=== PATIENT | male | born 1965 | race Caucasian/White ===

== ENCOUNTER → 2018-11-03 | Outpatient (CLI) | payer OTHER ==
[~2018-11-03] MED LIST: ATOR1TAB21 PO; LOSA50TA88 PO; METF500T4 PO; PROHANCE 279.3MG/ML 15ML VIAL (A9576) As Ordered ONE
--- NOTE | 2018-11-04 09:02 | REP ---
MRI abdomen and liver without and with IV gadolinium: History: Abnormal findings on imaging. Comparison is made with CT study abdomen and pelvis August 01, 2018. A prior MRI study of the abdomen is available from June 06, 2011. A prior CT study is available from June 04, 2011. Technique: Axial and coronal imaging planes are utilized. T1 and T2-weighted sequences include spin-echo, fast spin echo, in and out of phase, gradient echo, diffusion weighted sequences, and post contrast T1-weighted fat sat images. The patient could not tolerate continuing with the exam during this dynamically acquired post contrast portion of the study and only arterial phase and 1-minute post contrast images could be obtained. Gadolinium enhancement dose is 14 mL of intravenous ProHance. MRI findings: There are cortical cysts bilaterally in the kidneys. The largest of these is in the lower pole on the right as seen on CT measuring up to 2.6 cm in greatest transverse dimension. No abnormality is noted in the gallbladder, pancreas, or spleen. There is no evidence of ascites. No evidence of upper abdominal adenopathy is seen. Spleen is not enlarged measuring 11.1 cm in greatest dimension. The liver is abnormal diffusely with a somewhat mottled course signal intensity most pronounced on T2-weighted fat sat sequence. Postcontrast images demonstrate a pattern of numerous regenerative nodules. The left hepatic lobe is prominent and the right hepatic lobe is somewhat small. There is fatty infiltration of the liver and the findings suggest early cirrhosis. A recannulated umbilical vein is apparent entering the portal circulation. No other abdominal venous collaterals are observed. The recent CT study shows a hyperdense or hypervascular lesion in the right lobe of the liver inferiorly and medially. This measures 2.9 cm in greatest diameter. This corresponds to a the lesion evaluated by the [address] and MRI studies. At that time this lesion measured 1.1 cm. It is isointense on routine T2-weighted sequences on today's MRI and is only seen on a few of the precontrast sequences namely in and out of phase and gradient echo sequences. There is no evidence of restricted diffusion in the lesion. On the arterial phase postcontrast sequence there is hypervascular enhancement. There is a low signal intensity capsule around the periphery and there are areas of nonenhancement centrally. The 1 minute post contrast sequence shows washout. As stated above the patient could not tolerate the more delayed postcontrast sequences. By MRI study the lesion measures 2.4 cm in greatest diameter. Impression: 1. MR features in the liver suggestive of cirrhosis. Fatty infiltration. Hypertrophy of the left lobe. Regenerative micronodular pattern and coarse texture in the liver. Recannulated umbilical vein. 2. Gradually enlarging 2.4 cm hypervascular lesion in the inferior aspect of the right lobe of the liver. This grew from 1.1 cm in 2011 to 2.4 cm currently by MRI. The lesion demonstrates washout. Differential possibilities include focal nodular hyperplasia, adenoma, and low grade hepatocellular carcinoma. Electronically Signed by Adis Friedman MD 11/04/2018 10:14 A
== END ==
LOC: M RAD 14:16
PROVIDERS: ATTEND Internal Medicine Gastroenterology
DX: R93.3 Abnormal findings on diagnostic imaging of other parts of digestive tract (principal); N28.1 Cyst of kidney, acquired; K76.0 Fatty (change of) liver, not elsewhere classified; K76.89 Other specified diseases of liver
CPT/HCPCS: 74183; A9576

== ENCOUNTER 2018-12-03 09:51 | Day surgery (SDC) | payer OTHER ==
[~2018-12-03] VITALS: Ht 170.2 cm; Wt 79.4 kg
[~2018-12-03 09:51] MED LIST changes: +NS 1,000 ML IV ONE; -PROHANCE 279.3MG/ML 15ML VIAL (A9576) As Ordered ONE
[2018-12-03] MEDS ORDERED: PROPOFOL 200 MG/20 ML VIAL As Ordered ONE ×2 (12:23→12:33)
[2018-12-03] MEDS ORDERED: LIDOCAINE 2% INJ 100 MG/5 ML SDV (FOR ANES.) As Ordered ONE (12:23)
--- NOTE | 2018-12-03 12:56 | ROOR ---
Patient Name: Jonathon Jeffrey Procedure Date: 12/03/2018 12:22 PM Date of : 1965 Age: 53 Room: [facility] Gender: Male Note Status: Finalized Procedure: Upper GI endoscopy Indications: Cirrhosis rule out esophageal varices Providers: Torey Ryan MD Referring MD: ESAU WHITE MD Requesting Provider: Medicines: Monitored Anesthesia Care Complications: No immediate complications. Procedure: Pre-Anesthesia Assessment: - Prior to the procedure, a History and Physical was performed, and patient medications and allergies were reviewed. The patient is competent. The risks and benefits of the procedure and the sedation options and risks were discussed with the patient. All questions were answered and informed consent was obtained. Patient identification and proposed procedure were verified by the physician, the nurse and the anesthesiologist in the procedure room. Airway Examination: normal oropharyngeal airway and neck mobility. Respiratory Examination: clear to auscultation. CV Examination: normal. Prophylactic Antibiotics: The patient does not require prophylactic antibiotics. Prior Anticoagulants: The patient has taken no previous anticoagulant or antiplatelet agents. ASA Grade Assessment: III - A patient with severe systemic disease. After reviewing the risks and benefits, the patient was deemed in satisfactory condition to undergo the procedure. The anesthesia plan was to use monitored anesthesia care (MAC). Immediately prior to administration of medications, the patient was re-assessed for adequacy to receive sedatives. The heart rate, respiratory rate, oxygen saturations, blood pressure, adequacy of pulmonary ventilation, and response to care were monitored throughout the procedure. The physical status of the patient was re-assessed after the procedure. The Endoscope was introduced through the mouth, and advanced to the second part of duodenum. The upper GI endoscopy was accomplished without difficulty. The patient tolerated the procedure well. Findings: Three columns of non-bleeding grade II, small (< 5 mm) varices were found in the middle third of the esophagus and in the lower third of the esophagus,. No stigmata of recent bleeding were evident and no red radha signs were present. The Z-line was regular and was found in the distal esophagus. Diffuse severe inflammation characterized by erosions, erythema, friability and granularity was found in the gastric antrum. Biopsies were taken with a cold forceps for Helicobacter pylori testing. Verification of patient identification for the specimen was done by the physician and nurse using the patient's name, date and medical record number. Estimated blood loss was minimal. No gross lesions were noted in the duodenal bulb and in the second portion of the duodenum. Impression: - Non-bleeding grade II and small (< 5 mm) esophageal varices. - Z-line regular, in the distal esophagus. - Gastritis. Biopsied. - No gross lesions in the duodenal bulb and in the second portion of the duodenum. Recommendation: - Patient has a contact number available for emergencies. The signs and symptoms of potential delayed complications were discussed with the patient. Return to normal activities tomorrow. Written discharge instructions were provided to the patient. - Low sodium diet. - Continue present medications. - Await pathology results. - Give a beta irais with dosage titrated by the heart rate. - Return to GI clinic 1 - 2 weeks. Please call GI clinic @ [phone] for apppointment date and time. - Return to primary care physician. Torey Ryan MD Torey Ryan MD 12/03/2018 12:56:28 PM Electronically signed by Torey Ryan MD Number of Addenda: 0 Note Initiated On: 12/03/2018 12:22 PM Estimated Blood Loss: Estimated blood loss was minimal.
--- NOTE | 2018-12-03 13:15 | ROOR ---
Patient Name: Jonathon Jeffrey Procedure Date: 12/03/2018 12:23 PM Date of : 1965 Age: 53 Room: [facility] Gender: Male Note Status: Finalized Procedure: Colonoscopy Indications: Screening for colorectal malignant neoplasm Providers: Torey Ryan MD Referring MD: ESAU WHITE MD Requesting Provider: Medicines: Monitored Anesthesia Care Complications: No immediate complications. Procedure: Pre-Anesthesia Assessment: - Prior to the procedure, a History and Physical was performed, and patient medications and allergies were reviewed. The patient is competent. The risks and benefits of the procedure and the sedation options and risks were discussed with the patient. All questions were answered and informed consent was obtained. Patient identification and proposed procedure were verified by the physician, the nurse and the anesthesiologist in the procedure room. Mental Status Examination: normal. Airway Examination: normal oropharyngeal airway and neck mobility. Respiratory Examination: clear to auscultation. CV Examination: normal. Prophylactic Antibiotics: The patient does not require prophylactic antibiotics. Prior Anticoagulants: The patient has taken no previous anticoagulant or antiplatelet agents. ASA Grade Assessment: III - A patient with severe systemic disease. After reviewing the risks and benefits, the patient was deemed in satisfactory condition to undergo the procedure. The anesthesia plan was to use monitored anesthesia care (MAC). Immediately prior to administration of medications, the patient was re-assessed for adequacy to receive sedatives. The heart rate, respiratory rate, oxygen saturations, blood pressure, adequacy of pulmonary ventilation, and response to care were monitored throughout the procedure. The physical status of the patient was re-assessed after the procedure. The Colonoscope was introduced through the anus and advanced to the terminal ileum, with identification of the appendiceal orifice and IC valve. The colonoscopy was performed without difficulty. The patient tolerated the procedure well. The quality of the bowel preparation was good. The terminal ileum, ileocecal valve, appendiceal orifice, and rectum were photographed. Scope insertion time was 3 minutes. Scope withdrawal time was 10 minutes. The total duration of the procedure was 14 minutes. Findings: The perianal and digital rectal examinations were normal. The terminal ileum appeared normal. Multiple small and large-mouthed diverticula were found from sigmoid to descending colon. There was no evidence of diverticular bleeding. Two medium-sized angioectasias without bleeding were found in the descending colon. 10 mm, non-bleeding rectal varices were found. Non-bleeding external and internal hemorrhoids were found during retroflexion. The hemorrhoids were small. Impression: - The examined portion of the ileum was normal. - Moderate diverticulosis from sigmoid to descending colon. There was no evidence of diverticular bleeding. - Two non-bleeding colonic angioectasias. - Rectal varices. - Non-bleeding external and internal hemorrhoids. - No specimens collected. Recommendation: - Patient has a contact number available for emergencies. The signs and symptoms of potential delayed complications were discussed with the patient. Return to normal activities tomorrow. Written discharge instructions were provided to the patient. - Low sodium diet. - Continue present medications. - Repeat colonoscopy in 10 years for screening purposes. - Return to GI clinic 1 - 2 weeks. Please call GI clinic @ [phone] for apppointment date and time. - Return to primary care physician. Torey Ryan MD Torey Ryan MD 12/03/2018 1:15:22 PM Electronically signed by Torey Ryan MD Number of Addenda: 0 Note Initiated On: 12/03/2018 12:23 PM Estimated Blood Loss: Estimated blood loss: none.
[2018-12-03 13:25] VITALS: BP 123/75
== END 2018-12-03 13:40 | disposition home or self-care (01) ==
LOC: M OPP 09:51
PROVIDERS: ATTEND Internal Medicine Gastroenterology
DX: Z12.11 Encounter for screening for malignant neoplasm of colon (principal); K57.30 Diverticulosis of large intestine without perforation or abscess without bleeding; K55.20 Angiodysplasia of colon without hemorrhage; K62.89 Other specified diseases of anus and rectum; K64.9 Unspecified hemorrhoids; K74.60 Unspecified cirrhosis of liver; I85.10 Secondary esophageal varices without bleeding; K29.70 Gastritis, unspecified, without bleeding

== ENCOUNTER 2021-02-17 12:05 | Inpatient (IN) | payer OTHER ==
[~2021-02-17] VITALS: Ht 170.2 cm; Wt 87.4 kg
[2021-02-17] VITALS (13 sets, daily range): BP systolic 116–143; BP diastolic 58–79
[~2021-02-17 12:05] MED LIST changes: +METF-838 PO; -METF500T4 PO; -NS 1,000 ML IV ONE
[2021-02-17] MEDS ORDERED: ACETAMINOPHEN TAB 650MG DOSE (2X325MG) PO PRN (14:25)
[2021-02-17 15:02] LABS: MEAN CORPUSCULAR HEMOGLOBIN 20.2 pg (27.0-33.0); MEAN CORPUSCULAR HGB CONC 27.3 g/dl (32.0-36.5); MEAN CORPUSCULAR VOLUME 73.9 fl (80.0-96.0); PLATELET COUNT, AUTOMATED 201 10^3/uL (150-450); RED BLOOD COUNT 2.18 10^6/uL (4.30-6.10); WHITE BLOOD COUNT 5.8 10^3/uL (4.0-10.0)
[2021-02-17 15:15] LABS: HEMATOCRIT 16.1 % (42.0-52.0); HEMOGLOBIN 4.4 g/dl (13.5-17.5)
[2021-02-17 15:33] LABS: ALBUMIN 3.1 GM/DL (3.2-5.2); ALT/SGPT 39 U/L (12-78); BILIRUBIN,TOTAL 0.7 MG/DL (0.2-1.0); BLOOD UREA NITROGEN 9 MG/DL (7-18); CALCIUM LEVEL 7.8 MG/DL (8.5-10.1); CARBON DIOXIDE LEVEL 23 MEQ/L (21-32); CHLORIDE LEVEL 110 MEQ/L (98-107); CREATININE FOR GFR 1.04 MG/DL (0.70-1.30); GLOMERULAR FILTRATION RATE > 60.0 (>56); GLUCOSE, FASTING 145 MG/DL (70-100); POTASSIUM SERUM 4.3 MEQ/L (3.5-5.1); SODIUM LEVEL 138 MEQ/L (136-145); TOTAL PROTEIN 6.4 GM/DL (6.4-8.2)
[2021-02-17] MEDS ORDERED: DEXTROSE 50% 50 ML SYRINGE IV PRN (15:45)
[2021-02-17] MEDS ORDERED: GLUCAGON INJ 1MG VIAL SC PRN (15:45)
[2021-02-17] MEDS ORDERED: GLUCOSE 4GM CHEW TABLET PO PRN (15:45)
[2021-02-17] MEDS ORDERED: LORazepam 2 MG TAB PO PRN (16:05)
--- NOTE | 2021-02-17 16:07 | HPEPDOC ---
[facility] Medical History & Physical Date of Admission Feb 17, 2021 Date of Service: Feb 17, 2021 Other Provider PCP: DAVEY Epperson in [place], [place] Attending Physician: FLOR BENTON DO History and Physical CHIEF COMPLAINT: Lightheadedness and fatigue HISTORY OF PRESENT ILLNESS: Patient reports that he has been feeling weak and fatigued for at least the past 3 weeks, and is most prominent complaint is feeling lightheaded when rising from a standing position. He is accompanied in the room by 2 family members, and they both confirm that he does look pale at this time. He presented to the [facility] emergency department for evaluation and was found to have a hemoglobin of 3.8. They do not have anyone available to do EGD/colonoscopy, therefore he was transferred to our facility as our surgical team is able to perform this. We do not currently have GI though. Blood transfusion was started in their facility and did continue to receive blood in the ambulance on his way here, he does not believe that he even finish one entire bag though. His hemoglobin upon arrival to our facility was found to be 4.4. His most recent colonoscopy was performed in November 2018 at [facility], and he was found to have 2 medium-sized nonbleeding angiectasia as in the descending colon, nonbleeding rectal varices, nonbleeding external and internal hemorrhoids, and multiple small and large mouth diverticula in the sigmoid to the descending colon. Apparently no specimens were collected, there is no mention of polyps. His most recent EGD was performed in November 2018 at the same time. At that time he was found to have 3 columns of nonbleeding grade 2 small (less than 5 mm) varices were found in the middle third of the esophagus and in the lower third of the esophagus. He also had diffuse severe inflammation characterized by erosions, erythema, friability, granularity was found in the gastric antrum. The patient and his family members are unaware of any diagnosis of cirrhosis, and he is not on any medications that would imply that he has cirrhosis either. Nevertheless, he is quite a heavy drinker and admits to drinking approximately 3-20 beers daily. CODE STATUS: Full code PAST MEDICAL HISTORY: Mixed hyperlipidemia Essential hypertension Diabetes mellitus type 2 without complication, apparently well controlled on metformin alone PAST SURGICAL HISTORY: Only colonoscopy and EGD as listed above SOCIAL HISTORY: Patient reports drinking anywhere from 3-20 beers daily. Does not smoke or use illicit drugs. FAMILY HISTORY: Mother has diabetes mellitus type 2, and had breast cancer, and an uncle had a heart attack. REVIEW OF SYSTEMS: Constitutional: Patient denies fevers, chills, night sweats, recent weight gain/loss. HEENT: Patient denies blurred or double vision, transient visual disturbances, postnasal drip, epistaxis, sore throat, difficulty chewing or swallowing food. Cardiovascular: Patient denies chest discomfort/pain, palpitations, exertional dyspnea, orthopnea, edema of the extremities, claudication. Respiratory: Patient denies dyspnea, wheezing, cough, hemoptysis, sputum production. Gastrointestinal: Patient denies nausea, vomiting, diarrhea, constipation, abdominal pain, melena, hematochezia, hematemesis. His family members state that he appears quite pale as compared to his usual self, they think he looks a little yellow, but he certainly does not have any scleral icterus, therefore I do not think that he is jaundiced. PHYSICAL EXAMINATION: General: Awake, alert, oriented 3. He is in no acute distress. HEENT: Head normocephalic atraumatic, conjunctiva are pink, sclera are n onicteric, buccal mucosa is pink and moist with no lesions in the oropharynx. Hearing is grossly intact to conversation. Respiratory: Clear to auscultation bilaterally with no wheezes, rales, or rhonchi. Cardiovascular: Regular rate and rhythm, with no rubs, gallops, or murmur. Abdomen: Soft, nontender, nondistended, no hepatosplenomegaly appreciated. Bowel sounds present. Extremities: 2+ pulses in the radial and dorsalis pedis bilaterally. No evidence of clubbing or cyanosis. ELECTROCARDIOGRAM: Taken at [facility]. Shows sinus tachycardia with a rate of 112, otherwise no acute findings. IMAGING: Apparently a chest x-ray was taken at [facility] and was unremarkable ASSESSMENT: Severe symptomatic anemia (microcytic) Tachycardia Heavy alcohol use Questionable history of cirrhosis History of small esophageal varices History of gastritis History of diverticulosis History of colonic angiectasia History of rectal varices History of internal and external hemorrhoids Diabetes mellitus type 2 PLAN: - Will admit the patient to PCU. - 4 units of blood ordered, it is expected that with the administration of blood and his tachycardia will improve. - Both the patient and [facility] were apparently unaware of the presence of esophageal varices back in 2019. The patient certainly has many areas from what she could be bleeding, however given the fact that he has been ill for the past 3 weeks and his doing remarkably well for having a hemoglobin of 3.8, clearly this must be a very slow bleed. We will start him on Carafate and Protonix. Clear liquid diet for now. Surgery has been consulted, their input is greatly appreciated, will determine need for EGD and/or colonoscopy depending on how the patient does. - Workup regarding anemia includes reticulocyte count, iron studies, TSH - Will order a liver ultrasound to determine if he has cirrhosis - He is not showing any signs of withdrawal at this time, but will put an order for CIWA protocol given heavy alcohol use. Also will give thiamine, folic acid, multivitamin -Insulin sliding scale before meals and at bedtime for diabetes mellitus type 2 - DVT prophylaxis with teds and sequentials Laboratory Data Labs 24H Laboratory Tests 2 02/17/21 14:53: Nucleated Red Blood Cells % (auto) 0.7H, Anion Gap 5L, Glomerular Filtration Rate > 60.0, Calcium Level 7.8L, Total Bilirubin 0.7, Aspartate Amino Transf (AST/SGOT) 22, Alanine Aminotransferase (ALT/SGPT) 39, Alkaline Phosphatase 51, Total Protein 6.4, Albumin 3.1L, Albumin/Globulin Ratio 0.9 02/17/21 15:57: CBC/BMP Laboratory Tests 02/17/21 14:53 Home Medications Scheduled Atorvastatin Calcium (Atorvastatin Calcium) 20 Mg Tab, 1 TAB PO DAILY Losartan Potassium (Losartan Potassium) 50 Mg Tab, 1 TAB PO DAILY Metformin HCl (Metformin HCl ER) 500 Mg Tab, 1 TAB PO DAILY Allergies Coded Allergies: No Known Allergies (Unverified , 12/01/18) A-FIB/CHADSVASC A-FIB History Current/History of A-Fib/PAF?: No FLOR BENTON DO Feb 17, 2021 16:07
[2021-02-17] MEDS: HumaLOG INSULIN (NovoLOG) PER UNIT SC SCH ×2 (16:49→21:00)
[2021-02-17] MEDS ORDERED: METF500T13 PO (16:50)
[2021-02-17 16:53] LABS: PERCENT SATURATION 2.9 % (19.7-50.0); THYROID STIMULATING HORMONE 1.88 uIU/ML (0.358-3.740)
--- NOTE | 2021-02-17 16:53 | REP ---
INDICATION: Alcoholic with anemia, determine cirrhosis. COMPARISON: Comparison is made with MRI findings from November 03, [address] findings from August 01, 2018.. TECHNIQUE: Right upper quadrant sonography. FINDINGS: Scanning through the right upper quadrant the abdomen is somewhat limited due to the limited scan windows and bowel gas. Normal sized and walled gallbladder is seen without evidence of stone. Common bile duct is normal measuring 0.5 cm in greatest diameter. Gallbladder wall thickness is borderline at 3 mm. There is a somewhat coarse texture seen in the liver sonographically. A 2.5 x 2.5 x 2.4 cm hypoechoic mass lesion is seen in the right lobe of the liver which is felt to correspond with the lesion seen in this location on both CT and MRI study. This is nonspecific but appears to be essentially unchanged in size. There is no evidence of ascites. No other focal liver lesion is seen. No new right renal abnormality is seen. The right kidney measures at 10.0 x 5.4 x 6.3 cm. There is a cortical cyst in the right kidney measuring 2.9 cm in greatest diameter again noted. IMPRESSION: 2.5 cm solid right lobe liver lesion again seen essentially unchanged in size. Coarse liver texture. No ascites. Stable cortical cyst right kidney.. <Electronically signed by Reza Friedman > 02/17/21 [id number]
[2021-02-17] MEDS ORDERED: SLF 3 ML SYR IV PRN (17:10)
[2021-02-17] MEDS: MULTIVITAMINS/MINERALS THERAP 1 TAB PO SCH (17:34)
[2021-02-17] MEDS: THIAMINE 100 MG TAB PO SCH (17:34)
[2021-02-17] MEDS: SUCRALFATE 1 GM TAB PO SCH ×2 (17:34→22:10)
[2021-02-17] MEDS: FOLIC ACID 1 MG TAB PO SCH (17:35)
[2021-02-17] MEDS: SLF 3 ML SYR IV SCH (22:10)
[2021-02-18] VITALS (10 sets, daily range): BP systolic 106–139; BP diastolic 58–80
[2021-02-18 03:58] LABS: BASO # 0.1 10^3/uL (0.0-0.2); BASO % 0.8 % (0.0-1.0); EOS # 0.1 10^3/uL (0.0-0.5); EOS % 0.9 % (0.0-3.0); HEMATOCRIT 27.9 % (42.0-52.0); LYMPH # 1.4 10^3/uL (1.5-5.0); LYMPH % 21.3 % (24.0-44.0); MEAN CORPUSCULAR HEMOGLOBIN 24.2 pg (27.0-33.0); MEAN CORPUSCULAR HGB CONC 31.2 g/dl (32.0-36.5); MEAN CORPUSCULAR VOLUME 77.5 fl (80.0-96.0); MONO % 15.3 % (2.0-8.0); NEUTROPHILS # 3.9 10^3/uL (1.5-8.5); NEUTROPHILS % 61.4 % (36.0-66.0); PLATELET COUNT, AUTOMATED 171 10^3/uL (150-450); WHITE BLOOD COUNT 6.3 10^3/uL (4.0-10.0)
[2021-02-18 04:01] LABS: HEMOGLOBIN 8.7 g/dl (13.5-17.5)
[2021-02-18 04:24] LABS: BLOOD UREA NITROGEN 8 MG/DL (7-18); CALCIUM LEVEL 8.1 MG/DL (8.5-10.1); CARBON DIOXIDE LEVEL 23 MEQ/L (21-32); CHLORIDE LEVEL 110 MEQ/L (98-107); GLOMERULAR FILTRATION RATE > 60.0 (>56); GLUCOSE, FASTING 112 MG/DL (70-100); SODIUM LEVEL 140 MEQ/L (136-145)
[2021-02-18] MEDS: SLF 3 ML SYR IV SCH ×3 (06:11→22:56)
[2021-02-18] MEDS: HumaLOG INSULIN (NovoLOG) PER UNIT SC SCH ×4 (07:30→21:00)
[2021-02-18] MEDS: MULTIVITAMINS/MINERALS THERAP 1 TAB PO SCH (08:17)
[2021-02-18] MEDS: SUCRALFATE 1 GM TAB PO SCH ×3 (08:17→20:22)
[2021-02-18] MEDS: FOLIC ACID 1 MG TAB PO SCH (08:18)
[2021-02-18] MEDS: ATORVASTATIN 20 MG TAB PO SCH (08:18)
[2021-02-18] MEDS: THIAMINE 100 MG TAB PO SCH ×2 (08:18→20:22)
[2021-02-18] MEDS: PANTOPRAZOLE 40MG TAB (PROTONIX) PO SCH (08:18)
--- NOTE | 2021-02-18 08:28 | IPNPDOC ---
Text Note Date of Service The patient was seen on 02/18/21. NOTE Hospitalist Progress Note Subjective: And patient is reclined in the bed when I entered the room. He is awake and oriented, he is an excellent historian. He reports that he is feeling quite well this morning, significantly better than he has been for the past few weeks. He had on general examination he has much more color in his skin now as well. His tachycardia has resolved, and his blood pressure has maintained throughout the night. Hemoglobin was 8.7 this morning after having received 4 units of blood. Objective: General: Awake, alert, oriented 3. Not in any acute distress. HEENT: Head normocephalic, atraumatic, sclera are nonicteric. Hearing is grossly intact to conversation. Respiratory: Clear to auscultation bilaterally with no wheezes, rales, or rhonchi. Cardiovascular: Regular rate and rhythm, with no rubs, gallops, or murmur. Abdomen: Soft, nontender, nondistended, no hepatosplenomegaly appreciated. Bowel sounds present. Extremities: 2+ pulses in the radial and dorsalis pedis bilaterally. No evidence of clubbing or cyanosis. Assessment: Severe symptomatic anemia (microcytic) Tachycardia Heavy alcohol use Questionable history of cirrhosis History of small esophageal varices History of gastritis History of diverticulosis History of colonic angiectasia History of rectal varices History of internal and external hemorrhoids Diabetes mellitus type 2 Plan: -Recheck H/H later this afternoon to determine rate of loss of blood -Continue Protonix and Carafate -Gen. surgery consult appreciated -Ultrasound of the liver shows coarse texture, concerning for cirrhosis, or at least liver injury -Strongly recommend abstinence from alcohol at this time -Still no signs of alcohol withdrawal, continue CIWA protocol. VS,Fishbone, I+O VS, Fishbone, I+O Laboratory Tests 02/17/21 14:53 02/18/21 03:36 Vital Signs Date Time Temp Pulse Resp B/P (MAP) Pulse Ox O2 Delivery O2 Flow Rate FiO2 02/18/21 04:00 98.7 76 16 114/58 (76) 99 Room Air I&O- Last 24 Hours up to 6 AM 02/18/21 06:00 Intake Total 2150 ml Output Total 1650 ml Balance 500 ml FLOR BENTON DO Feb 18, 2021 08:28
--- NOTE | 2021-02-18 10:51 | CR ---
CONSULTATION DATE: 02/18/2021 REASON FOR CONSULTATION: GI bleed. HISTORY OF PRESENT ILLNESS: The patient is a 55-year-old male who has been feeling weak for the past few weeks. He has had at least one week of dizziness upon standing. His family brought him to [facility]. He was found to have a hemoglobin of 3.8. He was started on transfusion, transferred up here. I was told that he was anemic but that he had no significant history. However, upon arrival here, his history does show concerns for possible cirrhosis with heavy alcohol usage and history of possible esophageal varices as well. lf I had known that prior to transfer, I likely would have transferred him to [facility] instead. I do not have the ability to do any banding for esophageal varices. That is usually reserved for GI. However, overnight he has been stable. He has been given at least four units of blood. His hemoglobin on arrival here was 4.4. He is currently up to 8.7. He feels significantly improved. He has not had any bloody stools or anything since he has been here. He denies ever having any black stools or any bright red blood in his stool. His last colonoscopy was in November of [address] Ryan. He actually had an upper and lower endoscopy at that time. He had nonbleeding angiectasias in the colon, nonbleeding rectal varices, nonbleeding hemorrhoids as well as diverticulosis. He also had nonbleeding esophageal varices with inflammation in the gastric body as well. He is unaware of any diagnosis of cirrhosis. However, he does have an ultrasound of the liver that does show some nodularity to the texture of the liver suggestive of cirrhosis which is consistent with his usage of 3 to 20 beers a day. PAST MEDICAL HISTORY: 1. Hyperlipidemia. 2. Hypertension. 3. Diabetes. PAST SURGICAL HISTORY: Upper and lower endoscopy two years ago by Dr. Ryan. SOCIAL HISTORY: He drinks 3 to 20 beers a day, denies drug or alcohol abuse. FAMILY HISTORY: Noncontributory. ALLERGIES: None. MEDICATIONS: Please see med rec. REVIEW OF SYSTEMS: Pertinent positives and negatives as stated in history of present illness. PHYSICAL EXAMINATION: GENERAL: A&O x3, in no acute distress. VITALS: Temperature 98, pulse 76, respirations 16, blood pressure 114/58, pulse ox 99% on room air. HEENT: Pupils equally round, reactive to light and accommodation. HEART: S1, S2. Regular rate and rhythm. LUNGS: Clear to auscultation bilaterally. ABDOMEN: Soft, nontender, nondistended. EXTREMITIES: No clubbing, cyanosis or edema. LABORATORY DATA: Hemoglobin 4.4, up to 8.7 after four units of blood, white count 6.3, platelets 171, potassium 4, creatinine 1. IMAGING: Liver ultrasound shows a 2.5 cm solid right lobe liver lesion, unchanged in size. Coarse liver texture, no ascites. ASSESSMENT AND PLAN: Patient is a 55-year-old male with GI bleed, is likely secondary to an upper GI source from his history of excessive alcohol usage. This could be gastritis, duodenitis versus bleeding ulcer or bleeding varices. Since he is stable at this time, we will continue to monitor him for at least another 24 to 48 hours. If he remains stable, he can be discharged home. He can follow up with Dr. Ryan for repeat endoscopy as an outpatient. If he shows signs of continuing to bleed, I will talk to Dr. Ryan tomorrow and see if he is willing to see him while he is an inpatient. If anything happens more emergent, then I will attempt to scope him myself as well. I explained this in detail to the patient. He understands and agrees and we will continue to monitor him closely.
[2021-02-18 13:28] LABS: HEMATOCRIT 29.2 % (42.0-52.0); HEMOGLOBIN 8.9 g/dl (13.5-17.5)
[2021-02-19] VITALS: BP 139/77
[2021-02-19 04:00] VITALS: BP 124/80
[2021-02-19 06:07] LABS: HEMATOCRIT 29.5 % (42.0-52.0); MEAN CORPUSCULAR HEMOGLOBIN 24.2 pg (27.0-33.0); MEAN CORPUSCULAR HGB CONC 30.5 g/dl (32.0-36.5); MEAN CORPUSCULAR VOLUME 79.3 fl (80.0-96.0); PLATELET COUNT, AUTOMATED 171 10^3/uL (150-450); RED BLOOD COUNT 3.72 10^6/uL (4.30-6.10); WHITE BLOOD COUNT 7.5 10^3/uL (4.0-10.0)
[2021-02-19] MEDS: SLF 3 ML SYR IV SCH (06:08)
[2021-02-19 06:37] LABS: BLOOD UREA NITROGEN 6 MG/DL (7-18); CALCIUM LEVEL 8.4 MG/DL (8.5-10.1); CARBON DIOXIDE LEVEL 25 MEQ/L (21-32); CHLORIDE LEVEL 108 MEQ/L (98-107); CREATININE FOR GFR 0.95 MG/DL (0.70-1.30); GLOMERULAR FILTRATION RATE > 60.0 (>56); GLUCOSE, FASTING 109 MG/DL (70-100); POTASSIUM SERUM 3.8 MEQ/L (3.5-5.1); SODIUM LEVEL 138 MEQ/L (136-145)
[2021-02-19] MEDS ORDERED: SUCR1TA PO (07:40)
[2021-02-19] MEDS ORDERED: PANT40TA29 PO (07:40)
--- NOTE | 2021-02-19 07:48 | DS.PDOC ---
Discharge Summary General Date of Admission Feb 17, 2021 at 14:10 Date of Discharge 02/19/2021 Discharge Summary PRIMARY CARE PHYSICIAN: DAVEY Epperson in [place], [place] ATTENDING AT TIME OF DISCHARGE: Dr. Flor Zimmer, DO DISCHARGE DIAGNOS(E)S: Severe symptomatic anemia (microcytic), likely blood loss anemia secondary to slow GI bleed Tachycardia Heavy alcohol use Questionable history of cirrhosis History of small esophageal varices History of gastritis History of diverticulosis History of colonic angiectasia History of rectal varices History of internal and external hemorrhoids Diabetes mellitus type 2 HPI & HOSPITAL COURSE: The patient reports that he had been feeling weak and fatigued for the past 3 weeks, and he came to the emergency department for evaluation regarding orthostasis for the few days prior to admission. He presented to [facility] was found to have a hemoglobin 3.8, he was given approximately 1 unit of blood (perhaps not entirely unit) en route to [facility], and then 4 additional units of blood upon arrival here to [facility]. He was given Protonix and Carafate as GI prophylaxis. Since admission he has maintained stable H&H without signs of overt bleeding and has a matter fact his stool for occult blood at this time was negative. He is unaware of the diagnosis of cirrhosis, liver ultrasound showed a rough contour indicative of cirrhosis. He certainly has a strong history of alcohol use which is the most likely etiology. His most recent colonoscopy and EGD was approximately 2 years ago performed here at [facility], strongly recommend that he have a repeat EGD and colonoscopy as an outpatient. Additionally, he will likely need follow-up with hepatology regardless, therefore referral to Dr. Ryan will be made upon discharge. PHYSICAL EXAMINATION ON DISCHARGE: GENERAL: Awake, alert, oriented 3. He is in no acute distress. CARDIOVASCULAR EXAMINATION: Regular rate and rhythm, with no rubs, gallops, or murmur. RESPIRATORY EXAMINATION: Clear to auscultation bilaterally with no wheezes, rales, or rhonchi. ABDOMINAL EXAMINATION: Soft, nontender, nondistended. Bowel sounds present. EXTREMITIES: No clubbing or edema noted. 2+ pulses in the radial bilaterally. DISPOSITION: Home DISCHARGE INSTRUCTIONS: Follow-up with primary care provider within 7-10 days. Also follow-up with gastroenterology/hepatology at her earliest convenience, hopefully within the next 7-10 days as well. Diet as tolerated. Activity as tolerated. If symptoms return, or if you experience worsening of your symptoms, please call your doctor or return to the emergency department. DISCHARGE MEDICATIONS: Continue taking from home: A torsade and 20 mg by mouth daily Losartan 50 mg by mouth daily Metformin 500 mg by mouth twice a day New Medications: Pantoprazole 40 mg daily Sucralfate 1 g by mouth 3 times a day ITEMS THAT NEED OUTPATIENT FOLLOWUP: Outpatient EGD, colonoscopy, and follow-up regarding strong suspicion for liver cirrhosis Vital Signs/I&Os Vital Signs Date Time Temp Pulse Resp B/P (MAP) Pulse Ox O2 Delivery O2 Flow Rate FiO2 02/19/21 04:00 97.9 76 18 124/80 (95) 99 Room Air I&O- Last 24 Hours up to 6 AM 02/19/21 06:00 Intake Total 3305 ml Output Total 1550 ml Balance 1755 ml Laboratory Data Labs 24H Laboratory Tests 2 02/18/21 11:29: Bedside Glucose (Misc Panel) 169H 02/18/21 16:25: Bedside Glucose (Misc Panel) 157H 02/18/21 22:00: Bedside Glucose (Misc Panel) 142H 02/19/21 05:34: Nucleated Red Blood Cells % (auto) 0.5H, Anion Gap 5L, Glomerular Filtration Rate > 60.0, Calcium Level 8.4L CBC/BMP Laboratory Tests 02/18/21 13:08 02/19/21 05:34 FSBS Laboratory Tests Test 02/18/21 11:29 02/18/21 16:25 02/18/21 22:00 Range/Units Bedside Glucose (Misc Panel) 169 157 142 70-105 MG/DL Microbiology Microbiology 02/18/21 Stool Occult Blood ([facility]) - Final, Complete Discharge Medications Scheduled Atorvastatin Calcium (Atorvastatin Calcium) 20 Mg Tab, 20 MG PO DAILY, (Reported) Losartan Potassium (Losartan Potassium) 50 Mg Tab, 50 MG PO DAILY, (Reported) Metformin HCl (Metformin HCl) 500 Mg Tablet, 500 MG PO BID, (Reported) Pantoprazole Sodium (Pantoprazole Sodium) 40 Mg Tablet.dr, 40 MG PO DAILY Sucralfate (Sucralfate) 1 Gm Tablet, 1 GM PO TID Allergies Coded Allergies: No Known Allergies (Unverified , 12/01/18) FLOR ZIMMER DO Feb 19, 2021 07:48
[2021-02-19 08:05] VITALS: BP 152/77
--- NOTE | 2021-02-19 08:12 | IPNPDOC ---
Text Note Date of Service The patient was seen on 02/19/21. NOTE No acute events overnight. He did have a brown bowel movement. No problems with weakness. VSSAF NAD abd - soft, nt, nd labs - below hgb - 8.9>9 A) 55y/o male with blood loss anemia secondary to GI bleed. P) reg diet d/c home f/u with Dr. Ryan for outpatient endoscopy. Serge Kessler DO VS,Anibal, I+O VS, Neile, I+O Laboratory Tests 02/18/21 13:08 02/19/21 05:34 Vital Signs Date Time Temp Pulse Resp B/P (MAP) Pulse Ox O2 Delivery O2 Flow Rate FiO2 02/19/21 08:05 98.0 92 18 152/77 (102) 98 Room Air l I&O- Last 24 Hours up to 6 AM 02/19/21 06:00 Intake Total 3305 ml Output Total 1550 ml Balance 1755 ml FLOR KESSLER DO Feb 19, 2021 08:12
[2021-02-19] MEDS: PANTOPRAZOLE 40MG TAB (PROTONIX) PO SCH (08:23)
[2021-02-19] MEDS: MULTIVITAMINS/MINERALS THERAP 1 TAB PO SCH (08:23)
[2021-02-19] MEDS: ATORVASTATIN 20 MG TAB PO SCH (08:23)
[2021-02-19] MEDS: THIAMINE 100 MG TAB PO SCH (08:23)
[2021-02-19] MEDS: SUCRALFATE 1 GM TAB PO SCH (08:23)
[2021-02-19] MEDS: FOLIC ACID 1 MG TAB PO SCH (08:23)
[2021-02-19] MEDS: HumaLOG INSULIN (NovoLOG) PER UNIT SC SCH (08:24)
== END 2021-02-19 10:08 | disposition home or self-care (01) | DRG 812 ==
LOC: M PCU 14:10
PROVIDERS: ADMIT Neuromusculoskeletal Medicine & OMM; ATTEND Neuromusculoskeletal Medicine & OMM
PROC: 30233N1 Transfusion of Nonautologous Red Blood Cells into Peripheral Vein, Percutaneous Approach (ICD-10-PCS; principal; 2021-02-17)
DX: D50.0 Iron deficiency anemia secondary to blood loss (chronic) (principal); I85.10 Secondary esophageal varices without bleeding; K92.2 Gastrointestinal hemorrhage, unspecified; K28.9 Gastrojejunal ulcer, unspecified as acute or chronic, without hemorrhage or perforation; I10 Essential (primary) hypertension; E11.9 Type 2 diabetes mellitus without complications; E78.2 Mixed hyperlipidemia; K70.30 Alcoholic cirrhosis of liver without ascites; R00.0 Tachycardia, unspecified; F10.10 Alcohol abuse, uncomplicated; K64.8 Other hemorrhoids; K64.4 Residual hemorrhoidal skin tags; Z79.84 Long term (current) use of oral hypoglycemic drugs; Z79.899 Other long term (current) drug therapy

== ENCOUNTER → 2021-03-12 | Outpatient (CLI) | payer OTHER ==
[~2021-03-12] MED LIST changes: +METF500T13 PO; +PANT40TA29 PO; +SUCR1TA PO
== END ==
LOC: M LABSMTC 09:12
PROVIDERS: ATTEND Anesthesiology
DX: Z01.818 Encounter for other preprocedural examination (principal); Z11.52 Encounter for screening for COVID-19

== ENCOUNTER 2021-03-16 10:47 | Day surgery (SDC) | payer OTHER ==
[~2021-03-16] VITALS: Ht 170.2 cm; Wt 83.6 kg
[~2021-03-16 10:47] MED LIST changes: +NS 1,000 ML IV ONE
[2021-03-16] MEDS ORDERED: fentaNYL 100 MCG/2 ML INJECTION (J3010) As Ordered ONE (11:08)
[2021-03-16] MEDS ORDERED: propofoL 500 MG/50 ML VIAL As Ordered ONE (11:09)
[2021-03-16] MEDS ORDERED: LIDOCAINE 2% 100MG/5ML SDV (FOR ANES.) As Ordered ONE (11:12)
[2021-03-16] MEDS ORDERED: propofoL 200 MG/20 ML VIAL As Ordered ONE (11:54)
--- NOTE | 2021-03-16 12:35 | ROOR ---
Patient Name: Jonathon Jeffrey Procedure Date: 03/16/2021 11:31 AM Date of : 1965 Age: 55 Room: [facility] Gender: Male Note Status: Finalized Procedure: Upper GI endoscopy Indications: Acute post hemorrhagic anemia Providers: Torey Ryan MD Referring MD: Ada Herrera NP Requesting Provider: Medicines: Monitored Anesthesia Care Complications: No immediate complications. Procedure: Pre-Anesthesia Assessment: - Prior to the procedure, a History and Physical was performed, and patient medications and allergies were reviewed. The patient is competent. The risks and benefits of the procedure and the sedation options and risks were discussed with the patient. All questions were answered and informed consent was obtained. Patient identification and proposed procedure were verified by the physician, the nurse and the anesthesiologist in the procedure room. Mental Status Examination: normal. Airway Examination: normal oropharyngeal airway and neck mobility. Respiratory Examination: clear to auscultation. CV Examination: normal. Prophylactic Antibiotics: The patient does not require prophylactic antibiotics. Prior Anticoagulants: The patient has taken no previous anticoagulant or antiplatelet agents. ASA Grade Assessment: III - A patient with severe systemic disease. After reviewing the risks and benefits, the patient was deemed in satisfactory condition to undergo the procedure. The anesthesia plan was to use monitored anesthesia care (MAC). Immediately prior to administration of medications, the patient was re-assessed for adequacy to receive sedatives. The heart rate, respiratory rate, oxygen saturations, blood pressure, adequacy of pulmonary ventilation, and response to care were monitored throughout the procedure. The physical status of the patient was re-assessed after the procedure. The Endoscope was introduced through the mouth, and advanced to the second part of duodenum. The upper GI endoscopy was accomplished without difficulty. The patient tolerated the procedure well. Findings: Three columns of non-bleeding grade II, large (> 5 mm) varices were found in the lower third of the esophagus and in the cardia,. No stigmata of recent bleeding were evident and no red radha signs were present. Type 2 gastroesophageal varices (GOV2, esophageal varices which extend along the fundus) with no bleeding were found in the cardia and in the gastric fundus. Scattered moderate inflammation characterized by erythema and granularity was found in the gastric antrum. The duodenal bulb and second portion of the duodenum were normal. Impression: - Non-bleeding grade II and large (> 5 mm) esophageal varices. - Type 2 gastroesophageal varices (GOV2, esophageal varices which extend along the fundus), without bleeding. - Gastritis. - Normal duodenal bulb and second portion of the duodenum. - No specimens collected. Recommendation: - Patient has a contact number available for emergencies. The signs and symptoms of potential delayed complications were discussed with the patient. Return to normal activities tomorrow. Written discharge instructions were provided to the patient. - Low sodium diet. - Continue present medications. - Use Protonix (pantoprazole) 40 mg PO twice daily - to be taken in morning (1/2 hour before breakfast) and at bedtime ( atleast 3 hours after last meal) for 3 months. - Refer to Liver center in [place] ( referral already sent from [facility]) as previously scheduled. - Return to GI clinic in 2 months. - Telephone GI clinic to schedule appointment 1 - 2 weeks. Please call GI clinic @ [phone] for apppointment date and time. - Return to primary care physician. Procedure Code(s): --- Professional --- 41817, Esophagogastroduodenoscopy, flexible, transoral; diagnostic, including collection of specimen(s) by brushing or washing, when performed (separate procedure) Diagnosis Code(s): --- Professional --- I85.00, Esophageal varices without bleeding I86.4, Gastric varices K29.70, Gastritis, unspecified, without bleeding D62, Acute posthemorrhagic anemia CPT copyright 2019 [employer]. All rights reserved. The codes documented in this report are preliminary and upon geology teacher review may be revised to meet current compliance requirements. Torey Ryan MD Torey Ryan MD 03/16/2021 12:35:18 PM Electronically signed by Torey Ryan MD Number of Addenda: 0 Note Initiated On: 03/16/2021 11:31 AM Estimated Blood Loss: Estimated blood loss: none.
[2021-03-16 12:39] VITALS: BP 141/75
--- NOTE | 2021-03-16 13:09 | ROOR ---
Patient Name: Jonathon Jeffrey Procedure Date: 03/16/2021 11:32 AM Date of : 1965 Age: 55 Room: [facility] Gender: Male Note Status: Finalized Procedure: Colonoscopy Indications: Acute post hemorrhagic anemia Providers: Torey Ryan MD Referring MD: Ada Herrera NP Requesting Provider: Medicines: Monitored Anesthesia Care Complications: No immediate complications. Procedure: Pre-Anesthesia Assessment: - Prior to the procedure, a History and Physical was performed, and patient medications and allergies were reviewed. The patient is competent. The risks and benefits of the procedure and the sedation options and risks were discussed with the patient. All questions were answered and informed consent was obtained. Patient identification and proposed procedure were verified by the physician, the nurse and the anesthesiologist in the procedure room. Mental Status Examination: alert and oriented. Airway Examination: normal oropharyngeal airway and neck mobility. Respiratory Examination: clear to auscultation. CV Examination: normal. Prophylactic Antibiotics: The patient does not require prophylactic antibiotics. Prior Anticoagulants: The patient has taken no previous anticoagulant or antiplatelet agents. ASA Grade Assessment: II - A patient with mild systemic disease. After reviewing the risks and benefits, the patient was deemed in satisfactory condition to undergo the procedure. The anesthesia plan was to use monitored anesthesia care (MAC). Immediately prior to administration of medications, the patient was re-assessed for adequacy to receive sedatives. The heart rate, respiratory rate, oxygen saturations, blood pressure, adequacy of pulmonary ventilation, and response to care were monitored throughout the procedure. The physical status of the patient was re-assessed after the procedure. The Colonoscope was introduced through the anus and advanced to the terminal ileum, with identification of the appendiceal orifice and IC valve. The colonoscopy was performed without difficulty. The patient tolerated the procedure well. The quality of the bowel preparation was good. The terminal ileum, ileocecal valve, appendiceal orifice, and rectum were photographed. Scope insertion time was 2 minutes. Scope withdrawal time was 9 minutes. The total duration of the procedure was 12 minutes. Findings: The perianal and digital rectal examinations were normal. The terminal ileum appeared normal. A 4 mm polyp was found in the ascending colon. The polyp was sessile. The polyp was removed with a cold snare. Resection and retrieval were complete. Verification of patient identification for the specimen was done by the physician and nurse using the patient's name, date and medical record number. Estimated blood loss was minimal. Multiple small and large-mouthed diverticula were found from sigmoid to transverse colon. There was no evidence of diverticular bleeding. Non-bleeding external and internal hemorrhoids were found during retroflexion. The hemorrhoids were medium-sized. Impression: - The examined portion of the ileum was normal. - One 4 mm polyp in the ascending colon, removed with a cold snare. Resected and retrieved. - Moderate diverticulosis from sigmoid to transverse colon. There was no evidence of diverticular bleeding. - Non-bleeding external and internal hemorrhoids. Recommendation: - Patient has a contact number available for emergencies. The signs and symptoms of potential delayed complications were discussed with the patient. Return to normal activities tomorrow. Written discharge instructions were provided to the patient. - Low sodium diet. - Continue present medications. - Follow the recommendations as per the other procedure note. - Repeat colonoscopy in 5 years for surveillance based on pathology results. - Return to GI clinic in 2 months. - Telephone GI clinic to schedule appointment 1 - 2 weeks. Please call GI clinic @ [phone] for apppointment date and time. - Return to primary care physician. Procedure Code(s): --- Professional --- 89276, Colonoscopy, flexible; with removal of tumor(s), polyp(s), or other lesion(s) by snare technique Diagnosis Code(s): --- Professional --- K64.8, Other hemorrhoids K63.5, Polyp of colon D62, Acute posthemorrhagic anemia K57.30, Diverticulosis of large intestine without perforation or abscess without bleeding CPT copyright 2019 [employer]. All rights reserved. The codes documented in this report are preliminary and upon procurement services manager review may be revised to meet current compliance requirements. Torey Ryan MD Torey Ryan MD 03/16/2021 1:09:14 PM Electronically signed by Torey Ryan MD Number of Addenda: 0 Note Initiated On: 03/16/2021 11:32 AM Estimated Blood Loss: Estimated blood loss: none.
== END 2021-03-16 12:59 | disposition home or self-care (01) ==
LOC: M OPP 10:47
PROVIDERS: ATTEND Internal Medicine Gastroenterology
DX: D62 Acute posthemorrhagic anemia (principal); D12.6 Benign neoplasm of colon, unspecified; K57.30 Diverticulosis of large intestine without perforation or abscess without bleeding; K64.8 Other hemorrhoids; Z79.84 Long term (current) use of oral hypoglycemic drugs; Z79.899 Other long term (current) drug therapy; F17.210 Nicotine dependence, cigarettes, uncomplicated; I85.00 Esophageal varices without bleeding; I86.4 Gastric varices; K29.70 Gastritis, unspecified, without bleeding
CPT/HCPCS: 43235; 45385; 88305; J3010